=== PATIENT | female | born 1990 | race Caucasian/White ===

== ENCOUNTER 2020-07-14 10:18 | Emergency (ER) | payer OTHER ==
[2020-07-14 10:30] VITALS: BP 116/76; PULSE 93; TEMP 99; BMI 23.8
[2020-07-14] MEDS ORDERED: IBUPROFEN 600 MG TABLET (FP) PO ONE ×2 (10:30→10:46)
[2020-07-14] MEDS ORDERED: FLUORESCEIN NA 1 EA STRIP ONE (10:54)
[2020-07-14] MEDS ORDERED: TETRACAINE 0.5% OPHTH SOLN 2 ML BOTTLE ONE (10:54)
[2020-07-14] MEDS ORDERED: TETRACAINE 0.5% OPHTH SOLN 2 ML BOTTLE OD ONE (11:27)
== END 2020-07-14 12:56 | disposition home or self-care (01) ==
LOC: FER 10:18
DX: S00.211A Abrasion of right eyelid and periocular area, initial encounter (principal)
CPT/HCPCS: 70450-TC; 70486-TC; 81003; 81025; 84703; 99285-25